=== PATIENT | female | born 1940 | race Caucasian/White ===

== ENCOUNTER 2016-08-21 11:15 | Inpatient (IN) | payer MEDICARE, BC ==
[~2016-08-21] VITALS: Ht 152.4 cm; Wt 63.5 kg
[~2016-08-21 11:15] MED LIST: ALTACE10 MG PO; ASPIRIN EC325 M1 PO; ASPIRIN81 MG PO; ATIVAN1 MG PO; ATROVENT 0.02%2.5 ML UPD; CALCIUM 600+D T1 TA1 PO; CHLORTHALIDONE25 MG PO; CITRUCEL500 MG PO; CRESTOR20 MG PO; FIBER-TABS625 MG PO; IBUPROFEN200 MG PO; IPRAT-ALBUT 0.5-3 ML UPD; LASIX20 MG PO; LEVAQUIN750 MG PO; METOPROLOL TART50 MG PO; MUCOMYST PO; N-ACETYL-L-CYSTEINE; NORVASC10 MG PO; OMNICEF300 MG PO; PLAVIX75 MG PO; PROVENTIL/2.5 MG/3 M NEB; RESTORIL15 MG PO; THEREMS-M1 TAB PO; TOPROL XL50 MG PO; ULTRAM50 MG PO; VITAMIN D31000 UNIT PO; XOPENEX 0.0.63 MG/3 UPD; ZITHROMAX TRI-500 MG PO; ZYLOPRIM100 MG PO
--- NOTE | 2016-08-21 12:15 | NUR ---
RECIEVED PATIENT VIA WHEELCHAIR. PATIENT AMBULATED FROM THE WHEELCHAIR TO THE BED. PATIENT'S GAIT STEADY. PATIENT ORIENTED X'S 4. RESPIRATIONS UNLABORED ON 2L/MIN OF OXYGEN VIA NASAL CANNULA. BROUGHT PATIENT NEW NASAL CANNULA, CONNECTED TO OXYGEN ON THE WALL. REMOVED HOME NASAL CANNULA AND APPLIED NEW NASAL CANNULA. PATIENT VERBALIZED AND EXPRESSED PAIN BEHIND HER EARS. APPLIED GAUZE TO NASAL CANNULA TO PROTECT EARS. DAUGHTER WITH PATIENT. PATIENT ASSESSMENT COMPLETED. BILATERAL PUPILS PERRLA. RIGHT UPPER EXTREMETY SLIGHTLY WEAKER THEN THE LEFT. BILATERAL LOWER EXTREMETIES EQUAL STRENGTH. PATIENT ABLE TO MOVE ALL EXTREMETIES EQUALLY. PATIENT STATED HER FINGERS IN HER RIGHT HAND ARE NUMB. DAUGHTER STATED "THEY ARE NUMB FROM THE STROKE IN JUNE. SHE HAS BEEN HAVING SOME NUMBNESS IN HER RIGHT ARM AND RIGHT LEG SINCE YESTERDAY."
[2016-08-21 12:37] LABS: BASOPHILS 0.1 % (0.0-2.0); EOSINOPHILS 3.4 % (0-7); HEMATOCRIT 42.2 % (36.0-48.0); HEMOGLOBIN 13.6 g/dL (12-16); IMMATURE GRANULOCYTES 0.3 % (0-5); LYMPHOCYTES 23.8 % (15-50); MCH 29.6 pg (26.0-34.0); MCHC 32.2 g/dL (31.0-37.0); MCV 91.7 fL (80.0-100.0); MEAN PLATELET VOLUME 10.7 fL (7.4-10.4); MONOCYTES 14.4 % (2-11); PLATELET COUNT 219 10x3/uL (130-400); RDW 15.1 % (11.5-14.5); WBC 6.8 10x3/uL (4.8-10.8)
[2016-08-21 13:16] VITALS: BP 154/64; BMI 27.3
[2016-08-21 13:19] LABS: ALBUMIN 3.3 g/dL (3.4-5.0); ALKALINE PHOSPHATASE 139 U/L (46-116); ALT (SGPT) 22 U/L (10-68); BILIRUBIN - TOTAL 0.42 mg/dL (0.2-1.3); CALC OSMOLALITY 277 mosm/kg (275-300); CALCIUM 9.7 mg/dL (8.5-10.1); CARBON DIOXIDE 38.2 mmol/L (21.0-32.0); CHLORIDE - SERUM 92 mmol/L (98-107); CREATININE - SERUM 1.9 mg/dL (0.6-1.3); GLUCOSE 69 mg/dL (74-106); POTASSIUM - SERUM 3.1 mmol/L (3.5-5.1); PROTEIN - SERUM 6.5 g/dL (6.4-8.2); SODIUM 136 mmol/L (136-145); UREA NITROGEN 36 mg/dL (7-18); eGFR NON AFRICAN AMERICAN 27 mL/min (90-120)
[2016-08-21 13:31] LABS: CREATINE KINASE 88 UL (21-215)
[2016-08-21 13:32] LABS: TROPONIN-I < 0.017 ng/mL (0.000-0.060)
[2016-08-21] MEDS ORDERED: POTASSIUM20 MEQ/11 PO (13:48)
[2016-08-21] MEDS ORDERED: LEXAPRO10 MG PO (13:49)
[2016-08-21] MEDS ORDERED: ZYLOPRIM100 MG PO (13:50)
[2016-08-21] MEDS ORDERED: ULTRAM50 MG PO (13:51)
[2016-08-21] MEDS ORDERED: ATIVAN1 MG PO (13:52)
[2016-08-21] MEDS ORDERED: CHLORTHALIDONE25 MG PO (13:53)
[2016-08-21] MEDS ORDERED: BACLOFEN10 MG PO (13:55)
[2016-08-21 15:36] VITALS: BP 115/47
--- NOTE | 2016-08-21 16:00 | NUR ---
CONNECTED PATIENT'S OXYGEN WITH RUBBER BANDS TO KEEP IT OFF OF HER EARS.
--- NOTE | 2016-08-21 16:15 | NUR ---
SPOKE WITH 'S NURSE. SHE SAID IS IN A ROOM I CAN GIVE HIM A MESSAGE FOR YOU. TOLD HER PATIENT IS REQUESTING PAIN MEDICATION, EYE DROPS. AND NEEDS HER MEDS RESTARTED.
[2016-08-21 19:00] VITALS: BP 154/60
[2016-08-22] VITALS: BP 128/57
[2016-08-22 04:00] VITALS: BP 113/47
[2016-08-22 05:32] LABS: BASOPHILS 0.2 % (0.0-2.0); EOSINOPHILS 4.2 % (0-7); HEMATOCRIT 37.3 % (36.0-48.0); HEMOGLOBIN 12.5 g/dL (12-16); IMMATURE GRANULOCYTES 0.2 % (0-5); LYMPHOCYTES 37.3 % (15-50); MCH 30.6 pg (26.0-34.0); MCHC 33.5 g/dL (31.0-37.0); MCV 91.2 fL (80.0-100.0); MEAN PLATELET VOLUME 10.3 fL (7.4-10.4); MONOCYTES 11.5 % (2-11); NEUTROPHILS 46.6 % (40-80); PLATELET COUNT 189 10x3/uL (130-400); RBC 4.09 10x6/uL (4.00-5.40); RDW 15.2 % (11.5-14.5); WBC 5.7 10x3/uL (4.8-10.8)
--- NOTE | 2016-08-22 05:54 | NUR ---
NEURO CHECKS EVERY 4 HOURS REMAINED UNCHANGED THROUGHOUT SHIFT. SLIGHT WEAKNESS IN RIGHT HAND. ROM ALL EXTREMITIES. TINGLING IN RIGHT ARM AND RIGHT LEG. EQUAL STRENGTH. SLURRED SPEECH PRIOR TO ADMISSION AND IS BASELINE FOR PT FROM PREVIOUS CVA. LIQUIDS ARE ORDERED TO BED THICKENED TO "HONEY" CONSISTENCY BUT PT INSISTS LIQUIDS TO BE NO LESS THAN "JELLY" THICK. WILL CONTINUE TO MONITOR.
[2016-08-22 06:14] LABS: ALBUMIN 2.8 g/dL (3.4-5.0); ANION GAP 8.5 mmol/L (8-16); BILIRUBIN - TOTAL 0.4 mg/dL (0.2-1.3); CALCIUM 8.3 mg/dL (8.5-10.1); CARBON DIOXIDE 34.6 mmol/L (21.0-32.0); CREATININE - SERUM 1.7 mg/dL (0.6-1.3); POTASSIUM - SERUM 3.1 mmol/L (3.5-5.1); PROTEIN - SERUM 5.5 g/dL (6.4-8.2)
--- NOTE | 2016-08-22 07:45 | NUR ---
PATIENT AWAKE, ALERT AND ORIENTED X'S 4. RESPIRATIONS ARE EVEN AND UNLABORED ON ROOM AIR. PATIENT IS SMILING. PATIENT STATED "I FEEL MUCH BETTER." PATIENT STATED SHE DOES HAVE TINGLING IN HER RIGHT UPPER AND LOWER EXTREMETIES. BED IN LOWEST POSITION, CALL LIGHT IN REACH. BED RAILS UP X'S 2.
[2016-08-22 08:10] VITALS: BP 123/45
[2016-08-22 11:11] VITALS: Ht 152.4 cm; Wt 63.5 kg
[2016-08-22 11:41] VITALS: BP 141/59
--- NOTE | 2016-08-22 15:30 | NUR ---
IV IS OUT, CATHETER INTACT. PATIENT STATED IV GOT HUNG ON SOMETHING AND CAME OUT. PATIENT IS DRINKING A LOT OF FLUID. NO OTHER MEDS ORDER IV BESIDES IVF. PATIENT STATED SAID SHE WILL BE DISCHARGED BY TOMORROW.
--- NOTE | 2016-08-22 15:54 | NUR ---
APPLIED SCDS TO BILATERAL LEGS
[2016-08-22 16:03] VITALS: BP 138/57
--- NOTE | 2016-08-22 16:26 | NUR ---
Patient Name: COLTON NICOLE Admission Status: Urgent Accout number: [id number] Admission Date: 08-21-2016 : 1940 Admission Diagnosis:CEREBRAL INFARCTION, UNSPECIFIED Attending: RENETTA Current LOS: 1 Anticipated DC Date: Planned Disposition: Home Primary Insurance: MEDICARE A & B Discharge Planning Comments: CM MET WITH PATIENT REGARDING D/C NEEDS AND PLANS. PATIENTS DAUGHTER SPOKE WITH CM ON THE PHONE REGARDING THESE NEEDS. PATIENT LIVES ALONE AND HAS 2 STEPS W/O RAILS TO ENTER HOME. PATIENT IS INDEPENDENT WITH HER CARE AND HAS A SHOWER CHAIR, OXYGEN, NEBULIZER, AND PORT 02 AT HOME. OXYGEN IS SUPPLIED BY [facility]. PATIENT IS CURRENT WITH (ALL AGES) WHICH COMES TO HER HOME AND HELPS WITH CLEANING AND COOKING 5 DAYS A WEEK FOR 2HRS DAY. PATIENT HAS NOT HAD HOME HEALTH AND DOES NOT THINK SHE WILL NEED IT. CM WILL CONTINUE TO FOLLOW PATIENT WITH D/C NEEDS AND PLANS. PCP DR[facility] [phone] ALFRED [facility] (DAUGHTER) [phone] Rough Rib Grader: Maritza Patricio
--- NOTE | 2016-08-22 17:21 | NUR ---
PATIENT ALERT AND ORIENTED X'S 4. DIETARY BROUGHT IN DINNER. CUT UP MEAT FOR PATIENT. PATIENT DENIES FURTHER NEEDS.
[2016-08-22 19:00] VITALS: BP 173/71
[2016-08-23] VITALS: BP 169/64
--- NOTE | 2016-08-23 03:42 | NUR ---
PATIENT SLEEPING SUPINE IN BED WITH NO DISTRESS NOTED. HOB 20 DEGREES. RR EVEN AND UNLABORED. O2 @ 2L VIA NC. SCD'S ON. SRX2. BED LOW. CALL LIGHT WITHIN REACH.
[2016-08-23 04:00] VITALS: BP 183/75
--- NOTE | 2016-08-23 07:18 | NUR ---
PATIENT IS RESTING IN BED. NO COMPLAINTS OF PAIN AT PRESENT TIME. PATIENT COMPLAINING OF WEARING HER SCD'S. PATIENT STATES, "THEY KEEP ME UP ALL NIGHT. I GET NO REST". SCD'S TAKEN OFF OF PATIENT'S BILATERAL LOWER EXTREMITIES PER PATIENT REFUSING TO WEAR THEM. NO IV ACCESS NOTED. PATIENT DENIES ANY NEEDS AT PRESENT TIME. CALL LIGHT IN PATIENT'S REACH. WILL MONITOR.
[2016-08-23 07:49] VITALS: BP 163/67
--- NOTE | 2016-08-23 08:38 | NUR ---
PATIENT SITTING UP IN HER BED AND EATING HER BREAKFAST. SCHEDULED MORNING MEDICATIONS CRUSHED AND GIVEN TO PATIENT IN APPLESAUCE. PATIENT TOLERATED WELL. SLIGHT SLURRED SPEECH NOTED. EQUAL REMODELER STRENGTH NOTED IN BILATERAL UPPER EXTREMITIES. ASSESSMENT COMPLETED PER FLOWSHEET. PATIENT DENIES ANY PAIN AT PRESENT TIME. TELEMETRY IN PLACE AND SHOWING NORMAL SINUS RHYTHM WITH A RATE OF 66. PATIENT REFUSES TO PUT SCD'S BACK ON BILATERAL LOWER EXTREMITIES. NO IV ACCESS NOTED. PATIENT DENIES NEEDS AT PRESENT TIME. CALL LIGHT IN PATIENT'S REACH.
[2016-08-23] MEDS ORDERED: POTASSIUM20 MEQ/11 PO (11:05)
[2016-08-23] MEDS ORDERED: ASPIRIN325 MG PO (11:06)
--- NOTE | 2016-08-23 11:30 | NUR ---
PATIENT RESTING IN BED. NO S/S OF DISTRESS NOTED. PATIENT DENIES ANY PAIN AT PRESENT TIME. DENEIS ANY NEEDS. CALL LIGHT IN PATIENT'S REACH. WILL CONTINUE TO MONITOR.
[2016-08-23 12:22] VITALS: BP 155/58
--- NOTE | 2016-08-23 14:00 | NUR ---
PATIENT IN BED WITH HER DAUGHTER AT HER BEDSIDE. PATIENT TO BE DISCHARGED HOME TODAY WITH HOME HEALTH TO FOLLOW UP WITH HER. PATIENT DENIES ANY NEEDS AT PRESENT TIME. CALL LIGHT IN REACH. WILL MONITOR PATIENT.
--- NOTE | 2016-08-23 14:36 | NUR ---
08/23/2016 14:34 DCP: Discharge Planning Order rec'd for home health. Referral faxed to [facility]. Notified seasonal retail merchandiser nurse.
[2016-08-23 16:00] VITALS: BP 160/61
--- NOTE | 2016-08-23 16:22 | NUR ---
DISCHARGE INSTRUCTIONS VERBALIZED TO PATIENT AND PATIENT'S DAUGHTER. PATIENT VERBALIZED UNDERSTANDING AND SIGNED DISCHARGE SHEETS.
--- NOTE | 2016-08-23 16:24 | NUR ---
PATIENT DISCHARGED VIA WHEELCHAIR TO THE CAR. DAUGHTER TO DRIVE PATIENT HOME.
--- NOTE | 2016-08-29 11:11 | EC ---
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 Ao 128 RVOT 74 RA PA 115 AV Gradient Peak 6.51 AV Mean 3.67 AV Area 1.3 MV Gradient Peak 5.80 MV Mean 2.24 MV Area COMMENTS: Agency Recruiter: Shaila VAIL Supervisor Winter:Krysta Gómez TAPE# PACS DATE OF SERVICE: 08/21/2016 Echocardiogram FINDINGS: 1. Left ventricular chamber size is within normal limits. Left ventricular systolic function is normal. Overall ejection fraction estimated at 45-50%. 2. Left atrium is within normal limits at 3.8 cm. Right atrium and right ventricular chamber sizes are mildly dilated. 3. Valvular structures have normal structure and motion. ECHOCARDIOGRAM REPORT [id number] COLTON NICOLE 4. Doppler interrogation reveals mild aortic insufficiency, mild mitral regurgitation, and mild tricuspid regurgitation. No other valvular insufficiency or stenosis and pulmonary systolic pressure is normal estimated at 23 mmHg. 5. No evidence of pericardial effusion or left ventricular thrombus. TRANSINT:[id number] Voice Confirmation ID: [id number] DOCUMENT ID: [id number] MARY GÓMEZ MD at 1111 CC: [id number] DICTATION DATE: 08/21/16 1511 CNC MACHINE OPERATOR: 08/21/160 DIS IN 08/23/16 [id number] [place] [address]
== END 2016-08-23 16:24 | disposition home health service (06) | DRG 309 ==
LOC: D.MS 11:15
PROVIDERS: ADMIT Family Medicine
DX: R00.1 Bradycardia, unspecified (principal); G45.9 Transient cerebral ischemic attack, unspecified; I69.351 Hemiplegia and hemiparesis following cerebral infarction affecting right dominant side; R13.10 Dysphagia, unspecified; E11.9 Type 2 diabetes mellitus without complications; I10 Essential (primary) hypertension; I25.10 Atherosclerotic heart disease of native coronary artery without angina pectoris; R48.2 Apraxia; R47.02 Dysphasia; E87.6 Hypokalemia

== ENCOUNTER → 2016-08-25 08:49 | Outpatient (CLI) | payer MEDICARE, BC ==
[2016-08-22 11:11] VITALS: BMI 27.3
[~2016-08-25 08:49] MED LIST changes: +ASPIRIN325 MG PO; +BACLOFEN10 MG PO; +LEXAPRO10 MG PO; +POTASSIUM20 MEQ/11 PO
== END | disposition home or self-care (01) ==
LOC: D.CT 07-29 12:00 → D.US 08:49 → D.CT 09:00 → D.US 09:00
DX: I71.4 Abdominal aortic aneurysm, without rupture (principal)

== ENCOUNTER → 2016-11-18 13:28 | Outpatient (CLI) | payer MEDICARE, BC ==
[2016-08-22 11:11] VITALS: BMI 27.3
== END | disposition home or self-care (01) ==
LOC: D.US 13:28
DX: I65.23 Occlusion and stenosis of bilateral carotid arteries (principal)